=== PATIENT | female | born 1955 | race Caucasian/White ===

== ENCOUNTER 2018-01-10 11:37 | Day surgery (SDC) | payer BC ==
[~2018-01-10 11:37] MED LIST: ANCEF/STERILE WATER 2 GM/20 ML 2 GM/20 ML SYRINGE IV ONE; NACL 0.9% IR ONE
[2018-01-10] MEDS ORDERED: ceFAZolin 2 GM in NACL 0.9% 100 ML IV ONE (13:00)
[2018-01-10 13:01] LABS: Hematocrit 33.5 % (30.3-42.9); Mean Corpuscular HGB Conc 33 % (30-34); Mean Corpuscular Volume 62 fl (79-97); Platelet Count 208 K/mm3 (140-440); Red Blood Count 5.45 M/mm3 (3.65-5.03); Red Cell Distribution Width 15.8 % (13.2-15.2)
[2018-01-10 13:02] LABS: Mean Corpuscular Hemoglobin 20 pg (28-32)
[2018-01-10 13:24] LABS: BUN/Creatinine Ratio 33; Blood Urea Nitrogen 10 mg/dL (7-17); Calcium 9.3 mg/dL (8.4-10.2); Hemolysis Index 1
[2018-01-10] MEDS ORDERED: ANCEF/STERILE WATER 2 GM/20 ML 2 GM/20 ML SYRINGE IV ONE ×3 (13:35→14:00)
[2018-01-10] MEDS ORDERED: MARCAINE 0.5% 30 ML INFILTRATI ONE (14:40)
[2018-01-10] MEDS ORDERED: SUBLIMAZE ONE (14:51)
[2018-01-10] MEDS ORDERED: XYLOCAINE MPF 2% ONE (14:51)
[2018-01-10] MEDS ORDERED: DIPRIVAN 10 MG/ML IV ONE (14:52)
[2018-01-10] MEDS ORDERED: LACTATED RINGERS 1,000 ML IV SCH (15:00)
[2018-01-10] MEDS ORDERED: ZEMURON IV ONE (15:25)
[2018-01-10] MEDS ORDERED: QUELICIN ONE (15:25)
[2018-01-10] MEDS ORDERED: ZOFRAN ONE (15:43)
[2018-01-10] MEDS ORDERED: ROBINUL ONE (15:54)
[2018-01-10] MEDS ORDERED: BLOXIVERZ ONE (15:54)
[2018-01-10] MEDS ORDERED: APRESOLINE ONE (16:02)
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
[2018-01-10] MEDS: DILAUDID IV PRN ×2 (16:39→16:50)
[2018-01-10] MEDS ORDERED: TYLENOL PO PRN (17:03)
--- NOTE | 2018-01-10 17:28 | Anesthesia Day of Surgery ---
Anesthesia Day of Surgery - Day of Surgery Patient Examined: Yes Patient H&P Reviewed: Yes Patient is NPO: Yes
--- NOTE | 2018-01-10 17:28 | Anesthesia Consultation ---
Anesthesia Consult and Med Hx Date of service: 01/10/18 - Airway Anesthetic Teeth Evaluation: Good ROM Head & Neck: Adequate Mental/Hyoid Distance: Adequate Mallampati Class: Class II Intubation Access Assessment: Probably Good - Pulmonary Exam CTA: Yes - Cardiac Exam Cardiac Exam: RRR - Pre-Operative Health Status ASA Pre-Surgery Classification: ASA2 Proposed Anesthetic Plan: General - Cardiovascular System Hx Hypertension: Yes
--- NOTE | 2018-01-10 17:29 | Post Anesthesia Evaluation ---
- Post Anesthesia Evaluation Patient Participated: Yes Airway Patent: Yes Stable Respiratory Function: Yes Nausea/Vomiting: No Temp > 96.8F: Yes Pain Manageable: Yes Adequeate Hydration: Yes Anesthesia Complications: No
[2018-01-10 18:44] VITALS: BP 135/69
== END 2018-01-10 18:10 | disposition home or self-care (01) ==
LOC: OR 11:37
PROVIDERS: ATTEND Surgery Vascular Surgery
DX: S81.802A Unspecified open wound, left lower leg, initial encounter (principal); L02.416 Cutaneous abscess of left lower limb; E11.9 Type 2 diabetes mellitus without complications; Z79.899 Other long term (current) drug therapy
CPT/HCPCS: 10140; 36415; 80048; 82962; 85027; 87075; 87116; 88305; J0360; J0690; J1170; J2405; J2704; J2710; J3010; J7120; 88304; J0330